=== PATIENT | female | born 1955 | race Caucasian/White ===

== ENCOUNTER → 2020-07-15 | Outpatient (CLI) | payer MEDICARE ==
--- NOTE | 2020-07-16 12:46 | US ---
EXAM DESCRIPTION: Carotid Duplex: ULTRASOUND. CLINICAL HISTORY: 64 years Female HTN COMPARISON: None. TECHNIQUE: Transcutaneous scanning utilizing villanueva-scale and Doppler modes to evaluate the bilateral carotid systems and vertebral arteries. Percentage of diameter of stenosis or no stenosis recorded will be based upon NASCET criteria. FINDINGS: Peak systolic/end diastolic velocities (CM-Sec) CCA Right 119/22 Left 66/15. ICA Right proximal 41/9, distal 60/23. Left proximal 34/15, Distal 48/25. Vertebral Right 63/24 Left 43/10. ECA (PS Only) Right 50 left 49. ICA/CCA peak systolic velocity ratio: Right 0.5 Left 0.7 ICA/CCA end diastolic velocity ratio: Right 1.0 Left 1.2 Vertebral arteries: antegrade flow. Comments: Bilateral atherosclerotic calcification. Spectral broadening in the right ICA. Area and diameter stenosis in the left common carotid bulb is 25% or less. IMPRESSION: 1. Doppler evaluation of the bilateral carotid systems and vertebral arteries shows no hemodynamically significant stenoses (less than 70%). 2. No significant amount of plaque in the carotid arteries bilaterally. Bilateral vertebral arteries showed antegrade-cephalad flow. Electronically signed by: Aron Gomes MD 07/16/2020 12:45 PM [employer]ER
== END ==
LOC: US 14:02
PROVIDERS: ATTEND Emergency Medicine
DX: I10 Essential (primary) hypertension (principal)